=== PATIENT | female | born 1940 | race Caucasian/White ===

== ENCOUNTER 2023-04-17 06:10 | Day surgery (SDC) | payer OTHER, MEDICAID ==
[~2023-04-17] VITALS: Ht 144.8 cm; Wt 44.5 kg
[~2023-04-17 06:10] MED LIST: ASPI81TA26 PO; BUSP10TA PO; CALTTAB6 PO; LIDOCAINE 3.5 % 1ML OPHTH TOPICAL GEL OU ONE; OMEG10002 PO; RA V400C PO; VITMTA PO
[2023-04-17] MEDS ORDERED: TOBRADEX OPHTH OINT 3.5 GM As Ordered ONE (06:43)
[2023-04-17] MEDS ORDERED: LIDOCAINE 1% SDV 5ML VIAL As Ordered ONE (06:43)
[2023-04-17] MEDS ORDERED: fentaNYL 100 MCG/2 ML INJECTION As Ordered ONE ×2 (06:51→08:43)
[2023-04-17] MEDS ORDERED: propofoL 200 MG/20 ML VIAL As Ordered ONE ×2 (06:51→07:52)
[2023-04-17] MEDS ORDERED: LIDOCAINE 2% 100MG/5ML SDV (FOR ANES.) As Ordered ONE (06:51)
[2023-04-17] MEDS ORDERED: OFLOXACIN 0.3 % (OCUFLOX) OPTH SOL 5ML OS ONE (07:30)
[2023-04-17] MEDS ORDERED: LIDOCAINE 2% MDV 20ML VIAL As Ordered ONE (07:44)
[2023-04-17] MEDS ORDERED: LR 1,000 ML IV SCH (07:45)
[2023-04-17] MEDS ORDERED: ONDANSETRON 4MG 2ML VIAL As Ordered ONE (07:52)
[2023-04-17] MEDS ORDERED: ACETYLCHOLINE OPHTH SOLN 1% 2ML (MIOCHOL-E) As Ordered ONE (07:52)
[2023-04-17] MEDS ORDERED: DUOVISC (0.50ML VISCOAT/0.85ML PROVISC) OPHTH KIT As Ordered ONE (08:38)
[2023-04-17] MEDS ORDERED: hydrALAZINE 20MG/ML 1ML VIAL As Ordered ONE (08:42)
[2023-04-17] MEDS ORDERED: ONDANSETRON 4MG 2ML VIAL IV STA (09:40)
[2023-04-17] MEDS ORDERED: ACETAMINOPHEN 325 MG TAB PO PRN (10:35)
[2023-04-17] MEDS ORDERED: ONDANSETRON 4MG TAB PO PRN (10:35)
[2023-04-17] MEDS ORDERED: acetaZOLAMIDE 500MG ER CAP PO ONE (10:45)
[2023-04-17] MEDS ORDERED: METOCLOPRAMIDE INJ 10MG/2ML VIAL IV ONE (10:55)
[2023-04-17 11:54] VITALS: BP 127/64; TEMP 97.8; O2SAT 97
== END 2023-04-17 12:20 | disposition home or self-care (01) ==
LOC: M SDC 06:10
PROVIDERS: ATTEND Ophthalmology
DX: H18.512 Endothelial corneal dystrophy, left eye (principal)
CPT/HCPCS: 65756; 65757; J0360; J2405; J2765; J3010; V2785

== ENCOUNTER → 2023-07-17 | Outpatient (CLI) | payer OTHER, MEDICAID ==
[~2023-07-17] MED LIST changes: -LIDOCAINE 3.5 % 1ML OPHTH TOPICAL GEL OU ONE
== END ==
LOC: M RAD 07:30
PROVIDERS: ATTEND Family Medicine
DX: R79.1 Abnormal coagulation profile (principal); M71.21 Synovial cyst of popliteal space [Baker], right knee